=== PATIENT | female | born 1965 | race Caucasian/White ===

== ENCOUNTER 2016-11-24 07:38 | Emergency (ER) | payer OTHER ==
[2016-11-24 07:48] VITALS: RESP 16; TEMP 98.6
--- NOTE | 2016-11-24 07:55 | CPEKG ---
Heart Rate: 69 RR Interval: 870 P-R Interval: 132 QRSD Interval: 92 QT Interval: 412 QTC Interval: 442 P [place]: 74 QRS [place]: 60 T Wave [place]: 47 EKG Severity - BORDERLINE ECG - EKG Impression: SINUS RHYTHM EKG Impression: BORDERLINE T WAVE ABNORMALITIES Electronically Signed By: Yordan Aguila 24-Nov-2016 10:23:40
--- NOTE | 2016-11-24 08:02 | EDPHY ---
H & P Time Seen by Provider: 11/24/16 08:00 HPI/ROS: Chief complaint. Hyperglycemia HPI. Patient is a 51-year-old longstanding insulin-dependent diabetic was somewhat dizzy last night and her blood sugar was low. She turned her insulin pump off and today her blood sugar is high. She has no fever or cough. No chest pain or shortness of breath. Nauseated and somewhat dizzy on standing. Thirsty. No urinary symptoms. No abdominal pain. ROS Constitutional. no fever/chills, no weakness Eyes. no problems with vision ENT. no sore throat, no nasal drainage; thirsty Cardiovascular. no chest pain Respiratory. no shortness of breath, no cough Abdominal. no abdominal pain; nausea . no problems urinating MS. no calf pain/swelling, no neck/back pain, no joint pain Skin. no rash Lymph. no swollen glands Neuro. Dizziness Past Medical/Surgical History: Insulin-dependent diabetes, hypothyroid Social History: , nonsmoker, no alcohol Smoking Status: Never smoked Physical Exam: General Appearance: Alert pleasant well-developed female mild distress vital signs are stable Eyes: Pupils equal and round no pallor or injection. ENT, mucous membranes are dry Respiratory: There are no retractions, lungs are clear to auscultation. Cardiovascular: Regular rate and rhythm. Gastrointestinal: Abdomen is soft and nontender, no masses, bowel sounds normal. Neurological: Awake and alert, sensory and motor exams grossly normal. Skin: Warm and dry, no rashes. Musculoskeletal: Neck is supple nontender. Extremities symmetrical, full range of motion. Psychiatric: Patient is oriented X 3, there is no agitation. Constitutional: Initial Vital Signs Temperature (C) 37.0 C 11/24/16 07:47 Heart Rate 86 11/24/16 07:47 Respiratory Rate 16 11/24/16 07:47 Blood Pressure 127/81 H 11/24/16 07:47 O2 Sat (%) 98 11/24/16 07:47 O2 Delivery Mode Room Air Allergies/Adverse Reactions: No Known Allergies Allergy (Unverified 11/24/16 07:46) Home Medications: Medication Instructions Recorded Insulin Pump Cartridge 11/24/16 Levothyroxine 11/24/16 Medical Decision Making - Diagnostics EKG Interpretation: EKG interpreted by me shows normal sinus rhythm with normal interval and axis. QRS is normal there is no significant ST elevation or depression. No arrhythmia. The rate is 69 Procedures: IV normal saline with initial target of 2 L. Zofran for nausea ED Course/Re-evaluation: Recheck 9:05 a.m.--feeling much better. Patient has had approximately 1.5 L of saline After 2 L repeat blood sugar is 218 Re-evaluation at 9:45 a.m.. Patient is stable feeling better. The patient, her , and I discussed laboratory evaluation, treatment plan including criteria for return importance of follow-up further evaluation. She expresses understanding and agreement Differential Diagnosis: I considered DKA, hyperglycemia, hypoglycemia, electrolyte abnormalities as well as cardiac arrhythmia - Data Points Laboratory Results: Laboratory Results 11/24/16 07:20 11/24/16 08:10 11/24/16 11/24/16 11/24/16 09:24 08:30 08:25 WBC RBC Hgb POC Hgb Hct POC Hct MCV MCH MCHC RDW Plt Count MPV Neut % (Auto) Lymph % (Auto) [place] % (Auto) Eos % (Auto) Baso % (Auto) Nucleat RBC Rel Count Absolute Neuts (auto) Absolute Lymphs (auto) Absolute Monos (auto) Absolute Eos (auto) Absolute Basos (auto) Absolute Nucleated RBC Immature Gran % Immature Gran # VBG pH 7.33 (7.31-7.42) POC Sodium Sodium POC Potassium Potassium POC Chloride Chloride Carbon Dioxide Anion Gap POC BUN BUN Creatinine POC Creatinine Estimated GFR Glucose POC Glucose 218 mg/dL H mg/dL (70-100) Calcium Phosphorus Magnesium Lipase Urine Color PALE YELLOW Urine Appearance CLEAR Urine pH 7.0 (5.0-7.5) Ur Specific [place] 1.005 (1.002-1.030) Urine Protein NEGATIVE (NEGATIVE) Urine Ketones 1+ H (NEGATIVE) Urine Blood NEGATIVE (NEGATIVE) Urine Nitrate NEGATIVE (NEGATIVE) Urine Bilirubin NEGATIVE (NEGATIVE) Urine Urobilinogen NEGATIVE EU EU (0.2-1.0) Ur Leukocyte Esterase NEGATIVE (NEGATIVE) Urine RBC NONE SEEN /hpf /hpf (0-3) Urine WBC 1-3 /hpf /hpf (0-3) Ur Epithelial Cells TRACE /lpf /lpf (NONE-1+) Urine Bacteria TRACE /hpf H /hpf (NONE SEEN) Urine Glucose 3+ H (NEGATIVE) 11/24/16 11/24/16 11/24/16 08:10 07:38 07:20 WBC 8.28 10^3/uL 10^3/uL (3.80-9.50) RBC 3.86 10^6/uL L 10^6/uL (4.18-5.33) Hgb 13.0 g/dL g/dL (12.6-16.3) POC Hgb 13.9 gm/dL gm/dL (12.6-16.3) Hct 38.2 % % (38.0-47.0) POC Hct 41 % % (38-47) MCV 99.0 fL fL (81.5-99.8) MCH 33.7 pg pg (27.9-34.1) MCHC 34.0 g/dL g/dL (32.4-36.7) RDW 12.7 % % (11.5-15.2) Plt Count 212 10^3/uL 10^3/uL (150-400) MPV 10.9 fL fL (8.7-11.7) Neut % (Auto) 77.9 % H % (39.3-74.2) Lymph % (Auto) 15.5 % % (15.0-45.0) [place] % (Auto) 4.6 % % (4.5-13.0) Eos % (Auto) 1.1 % % (0.6-7.6) Baso % (Auto) 0.5 % % (0.3-1.7) Nucleat RBC Rel Count 0.0 % % (0.0-0.2) Absolute Neuts (auto) 6.46 10^3/uL 10^3/uL (1.70-6.50) Absolute Lymphs (auto) 1.28 10^3/uL 10^3/uL (1.00-3.00) Absolute Monos (auto) 0.38 10^3/uL 10^3/uL (0.30-0.80) Absolute Eos (auto) 0.09 10^3/uL 10^3/uL (0.03-0.40) Absolute Basos (auto) 0.04 10^3/uL 10^3/uL (0.02-0.10) Absolute Nucleated RBC 0.00 10^3/uL 10^3/uL (0-0.01) Immature Gran % 0.4 % % (0.0-1.1) Immature Gran # 0.03 10^3/uL 10^3/uL (0.00-0.10) VBG pH POC Sodium 135 mEq/L mEq/L (134-144) Sodium 137 mEq/L mEq/L (134-144) POC Potassium 4.0 mEq/L mEq/L (3.3-5.0) Potassium 4.3 mEq/L mEq/L (3.5-5.2) POC Chloride 98 mEq/L mEq/L (97-110) Chloride 100 mEq/L mEq/L (97-110) Carbon Dioxide 21 mEq/l L mEq/l (22-31) Anion Gap 16 mEq/L mEq/L (8-16) POC BUN 8 mg/dL mg/dL (7-23) BUN 10 mg/dL mg/dL (7-23) Creatinine 0.7 mg/dL mg/dL (0.6-1.0) POC Creatinine 0.7 mg/dL mg/dL (0.6-1.0) Estimated GFR > 60 Glucose 310 mg/dL H mg/dL (70-100) POC Glucose 319 mg/dL H mg/dL (70-100) Calcium 10.0 mg/dL mg/dL (8.5-10.4) Phosphorus 4.1 mg/dL mg/dL (2.5-4.5) Magnesium 1.7 mg/dL mg/dL (1.6-2.3) Lipase 227.0 IU/L IU/L (23-300) Urine Color Urine Appearance Urine pH Ur Specific [place] Urine Protein Urine Ketones Urine Blood Urine Nitrate Urine Bilirubin Urine Urobilinogen Ur Leukocyte Esterase Urine RBC Urine WBC Ur Epithelial Cells Urine Bacteria Urine Glucose Medications Given: Discontinued Medications Sodium Chloride (Ns) 1,000 mls @ 0 mls/hr IV EDNOW ONE; Wide Open PRN Reason: Protocol Stop: 11/24/16 08:14 Last Admin: 11/24/16 08:31 Dose: 1,000 mls Sodium Chloride (Ns) 1,000 mls @ 0 mls/hr IV EDNOW ONE; Wide Open PRN Reason: Protocol Stop: 11/24/16 08:14 Last Admin: 11/24/16 08:32 Dose: 1,000 mls Ondansetron HCl (Zofran) 4 mg IVP EDNOW ONE Stop: 11/24/16 08:14 Last Admin: 11/24/16 08:33 Dose: 4 mg Point of Care Test Results: 11/24/16 11/24/16 07:38 09:24 POC Sodium 135 POC Potassium 4.0 POC Chloride 98 POC BUN 8 POC Creatinine 0.7 POC Glucose 319 H 218 H Departure - Departure Disposition: Home, Routine, Self-Care Clinical Impression: Hyperglycemia due to type 1 diabetes mellitus Condition: Good Instructions: Diabetic Hyperglycemia (ED) Additional Instructions: Drink plenty of fluids and stay hydrated. Return for worsening dizziness, chest discomfort, trouble breathing. Continue insulin pump. Return for rising blood sugars. Recheck by your regular physician in 1-2 days if not continuing to improve and feel better Referrals: JUAN CANTRELL [Primary Care Provider] - 1 day, if not improved
[2016-11-24] MEDS ORDERED: NS 1,000 ML IV ONE ×2 (08:13)
[2016-11-24] MEDS ORDERED: ONDANSETRON 4 MG/2 ML VIAL IVP ONE (08:13)
[2016-11-24 08:20] LABS: % IMMATURE GRANULYOCYTES 0.4 % (0.0-1.1); ABSOLUTE IMMATURE GRANULOCYTES 0.03 10^3/uL (0.00-0.10); ADD DIFF? NO; ADD MORPH? NO; ADD SCAN? NO; ATYPICAL LYMPHOCYTE FLAG 0 (0-99); FRAGMENT RBC FLAG 0 (0-99); HEMATOCRIT 38.2 % (38.0-47.0); LEFT SHIFT FLG 0 (0-99); LIPEMIA HEMOLYSIS FLAG 90 (0-99); MEAN CELL HEMOGLOBIN 33.7 pg (27.9-34.1); MEAN PLATELET VOLUME 10.9 fL (8.7-11.7); PLATELET CLUMPS FLAG 0 (0-99); PLATELET COUNT 212 10^3/uL (150-400); RED BLOOD CELL COUNT 3.86 10^6/uL (4.18-5.33); RED CELL DISTRIBUTION WIDTH 12.7 % (11.5-15.2)
[2016-11-24 08:28] LABS: ANION GAP 16 mEq/L (8-16); CARBON DIOXIDE 21 mEq/l (22-31); CHLORIDE 100 mEq/L (97-110); CREATININE 0.7 mg/dL (0.6-1.0); GLOMERULAR FILTRATION RATE > 60; GLUCOSE 310 mg/dL (70-100); MAGNESIUM 1.7 mg/dL (1.6-2.3); POTASSIUM 4.3 mEq/L (3.5-5.2); SODIUM 137 mEq/L (134-144)
[2016-11-24 08:37] LABS: COLOR PALE YELLOW; LEUKOCYTE ESTERASE,URINE NEGATIVE (NEGATIVE); NITRITE,URINE NEGATIVE (NEGATIVE)
[2016-11-24 08:39] LABS: BACTERIA TRACE /hpf (NONE SEEN)
[2016-11-24 08:40] LABS: RBC,URINE NONE SEEN /hpf (0-3)
[2016-11-24 09:38] VITALS: BP 100/58
[2016-11-24 09:54] VITALS: PULSE 68; O2SAT 96
== END 2016-11-24 09:58 | disposition home or self-care (01) ==
LOC: EDUNIT#
DX: E10.65 Type 1 diabetes mellitus with hyperglycemia (principal); E86.9 Volume depletion, unspecified
CPT/HCPCS: 82947-QW; 96374; J2405